=== PATIENT | male | born 1965 | race Caucasian/White ===

== ENCOUNTER 2020-04-11 11:34 | Emergency (ER) | payer BC ==
--- NOTE | 2020-04-11 12:52 | ER Document Report ---
ED Medical Screen (RME) - General Chief Complaint: Wrist Injury Stated Complaint: ARM INJURY Time Seen by Provider: 04/11/20 12:37 Mode of Arrival: Ambulatory Information source: Patient Notes: Patient is a 54-year-old male who was sent to the emergency room by his primary care provider after sustaining an injury to the dorsal aspect of his left wrist. Patient has a small laceration to the top of the left wrist the does not appear very deep however patient is unable to lift his left wrist in extension mode without pain but is unable to lift his middle finger at all. Patient is afraid he may have a piece of glass stuck in his arm or cut his tendons. He is currently on aware of his last tetanus shot but wants to check with his primary care provider before we give it in the emergency room. He will inform us of this later. Physical examination: Patient is a well-nourished well-developed 54-year-old male in no apparent distress but appears somewhat uncomfortable. Cardiac: Regular rate and rhythm no murmurs were heard on auscultation. Lungs: Bilateral breath sounds clear to auscultation. Examination of patient's area of concern is his left wrist there is approximately a 2 and half to 3 cm linear laceration going across the dorsum of the left wrist at the distal portion of the arm. Examination does not show to be deep at this time no foreign bodies were felt on palpation. Patient is able to extend his hand but with pain but is unable to lift the middle finger up to full extension. He has good cap refill in the nailbeds of the finger of the left hand. I have greeted and performed a rapid initial assessment of this patient. A comprehensive ED assessment and evaluation of the patient, analysis of test results and completion of the medical decision making process will be conducted by additional ED providers. Dictation of this chart was performed using voice recognition software; therefore, there may be some unintended grammatical errors. - Related Data Allergies/Adverse Reactions: No Known Allergies Allergy (Unverified 04/11/20 12:33) Past Medical History - Social History Chew tobacco use (# tins/day): No Frequency of alcohol use: None Drug Abuse: None Physical Exam - Vital signs Vitals: Temp Pulse Resp BP Pulse Ox 97.9 F 73 16 112/74 97 04/11/20 11:40 04/11/20 11:40 04/11/20 11:40 04/11/20 11:40 04/11/20 11:40 Course - Vital Signs Vital signs: Temp Pulse Resp BP Pulse Ox 97.9 F 73 16 112/74 97 04/11/20 11:40 04/11/20 11:40 04/11/20 11:40 04/11/20 11:40 04/11/20 11:40
--- NOTE | 2020-04-11 13:07 | RADIOLOGY REPORT (SQ) ---
EXAM DESCRIPTION: WRIST LEFT 3 VIEWS IMAGES COMPLETED DATE/TIME: 04/11/2020 12:58 pm REASON FOR STUDY: ? FB in forearm unable to raise wrist and middle f COMPARISON: None. NUMBER OF VIEWS: Three views. TECHNIQUE: AP, lateral, and oblique radiographic images acquired of the left wrist. LIMITATIONS: None. FINDINGS: MINERALIZATION: Normal. BONES: No acute fracture or dislocation. No worrisome bone lesions. Normal alignment. SOFT TISSUES: Small amount of subcutaneous air is demonstrated dorsally. No radiopaque foreign srikanth s. OTHER: Degenerative changes in the radiocarpal joint and carpal bones. IMPRESSION: Soft tissue changes over the dorsal aspect of the wrist. No radiopaque foreign bodies. No fracture. TECHNICAL DOCUMENTATION: JOB ID: [id number] [employer]- All Rights Reserved Reading location - IP/workstation name: [email or web address]
[2020-04-11] MEDS ORDERED: LIDOCAINE 1% INJ (10 MG/ML) 10 ML MDV INJ ONE (14:22)
--- NOTE | 2020-04-11 14:22 | ER Document Report ---
ED Hand/Wrist Injury - General Chief Complaint: Wrist Injury Stated Complaint: ARM INJURY Time Seen by Provider: 04/11/20 12:37 Primary Care Provider: DAFNE MCKNIGHT DO [ACTIVE STAFF] - Follow up as needed Mode of Arrival: Ambulatory Information source: Patient Notes: Patient is a 54-year-old male comes emergency room complaining of laceration to the dorsum of his left wrist. 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 Somehow the watch caught on a corner of the door and ripped off the glass portion of the watch and caused a laceration. Patient went to his primary care or walk-in clinic where they sent him here because he was unable to lift his wrist without pain and unable to fully extend the middle finger on the left hand. Patient feels like he might have a foreign body or piece of glass in the arm. Denies any other medical problems. Patient did not know if his tetanus shot was up-to-date. TRAVEL OUTSIDE OF THE [place] IN LAST 30 DAYS: No - HPI Injury to: Forearm, Wrist Onset: Just prior to arrival Where: Outdoors, Public place Timing: Constant Quality of pain: Sharp, Throbbing Severity: Moderate Pain Level: 3 Context: Laceration - Related Data Allergies/Adverse Reactions: No Known Allergies Allergy (Unverified 04/11/20 12:33) Past Medical History - General Information source: Patient - Social History Smoking Status: Former Smoker Chew tobacco use (# tins/day): No Frequency of alcohol use: None Drug Abuse: None Lives with: Family Family History: Reviewed & Not Pertinent Patient has homicidal ideation: No Review of Systems - Review of Systems Constitutional: No symptoms reported EENT: No symptoms reported Cardiovascular: No symptoms reported Respiratory: No symptoms reported Gastrointestinal: No symptoms reported Genitourinary: No symptoms reported Male Genitourinary: No symptoms reported Musculoskeletal: No symptoms reported Skin: Other - Laceration Hematologic/Lymphatic: No symptoms reported Neurological/Psychological: No symptoms reported -: Yes All other systems reviewed and negative Physical Exam - Vital signs Vitals: Temp Pulse Resp BP Pulse Ox 97.9 F 73 16 112/74 97 04/11/20 11:40 04/11/20 11:40 04/11/20 11:40 04/11/20 11:40 04/11/20 11:40 Interpretation: Normal - Notes Notes: PHYSICAL EXAMINATION: GENERAL: Well-appearing, well-nourished and in no acute distress. HEAD: Atraumatic, normocephalic. LUNGS: Breath sounds clear to auscultation bilaterally and equal. No wheezes rales or rhonchi. HEART: Regular rate and rhythm without murmurs Musculoskeletal: Examination patient's area concern is his left wrist distal portion of the forearm to the proximal portion of the wrist. He has approximately 2 and half centimeter linear laceration going across the wrist. This is approximately at the area where the watch would sit. Further evaluation shows patient unable to lift his wrist without discomfort and pain but he can do it. However when he gets the wrist perpendicular the middle finger will not raise above the knuckle. Patient states it also is very painful. Further evaluation of the wound itself does appear to be somewhat deep but it is very difficult to tell if it was a puncture wound only. Patient has good cap refill in nailbeds of that hand. But he has lost translator interpreter strength secondary to the discomfort. NEUROLOGICAL: Normal speech, normal gait. Normal sensory, motor exams PSYCH: Normal mood, normal affect. SKIN: See musculoskeletal above for full detail. Course - Re-evaluation Re-evalutation: 04/11/20 15:[address] Mcknight orthopedist front office java developer and hand specialist. I described to him the patient was unable to lift the middle finger in extension completely. But he had pain with extension of the wrist as well and he informed me that the patient should follow-up with him in the next 1 to 2 days. Patient is from out of town and has an orthopedist at home. He wants to follow-up there. I have informed patient that he needs to follow-up as soon as possible because if he has damage to tendon or has a partial tear he is got a certain amount of time to get it fixed of less than 10 days. I am also placing him back in his splint as per Dr. Mcknight patient understands the necessity to have follow-up soon. 04/11/20 15:15 Patient was also placed in a prefab cock-up splint/wrist splint. Patient stated it felt better once it was in place. This was reapplied after the sutures were done. 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 - Vital Signs Vital signs: Temp Pulse Resp BP Pulse Ox 98.0 F 78 18 120/70 98 04/11/20 15:00 04/11/20 15:00 04/11/20 15:00 04/11/20 15:00 04/11/20 15:00 Procedures - Laceration/Wound Repair Left Dorsal Arm Time completed: 15:12 Wound length (cm): 2.5 Wound's Depth, Shape: Into muscle, Linear Laceration pre-procedure: Sterile PPE donned, Chloraprep applied, Sterile drapes applied Anesthetic type: 1% Lidocaine Volume Anesthetic (mLs): 6 Wound explored: Clean Irrigated w/ Saline (mLs): 1,000 - Explored no foreign body Wound Debrided: Minimal Wound Repaired With: Sutures Suture Size/Type: 4:0, Prolene Number of Sutures: 3 Post-procedure wound care: Sterile dressing applied, Splint applied Post-procedure NV exam normal: Yes Complications: No Discharge - Discharge Clinical Impression: Extensor tendon disruption Arm laceration Qualifiers: Encounter type: initial encounter Laterality: left Qualified Code(s): S41.112A - Laceration without foreign body of left upper arm, initial encounter Condition: Stable Disposition: HOME, SELF-CARE Instructions: Antibiotic Ointment Protection ([facility]), Laceration Care ([facility]), Prophylactic Antibiotic ([facility]), Soap Cleansing ([facility]), Tetanus Immunization Given ([facility]) Additional Instructions: Use the splint until you follow-up with your orthopedist. You can take it off to take a shower. Also apply antibiotic ointment to the wound area 3 times a day and change her dressing out 3 times a day. This only needs to be a Band-Aid type of a dressing. As we discussed you need to follow-up with orthopedist within the next 2 to 3 days given that if you have disruption of the tendon it needs to be fixed relatively soon. I have given you the name of the orthopedist and hand specialist here at [facility] that I talked to today it is and you are welcome to contact his office. We are also placing you on antibiotics for prophylaxis and infection. If you have any concerns or problems return to ER for reevaluation. Prescriptions: Doxycycline Monohydrate 100 mg PO BID #20 tablet Doxycycline Monohydrate 100 mg PO BID #20 tablet Referrals: DAFNE MCKNIGHT, [ACTIVE STAFF] - Follow up as needed
[2020-04-11] MEDS ORDERED: LIDOCAINE 1% INJ-PF (10 MG/ML) 30 ML SDV INJ ONE (14:23)
[2020-04-11] MEDS ORDERED: DIPH/PERTUSS(ACELL)/TETANUS VAC/PF 0.5 ML SYR (>=10YO) IM ONE (15:17)
[2020-04-11 15:41] VITALS: BP 120/70
== END 2020-04-11 15:40 | disposition home or self-care (01) ==
LOC: ER 11:34
DX: S61.512A Laceration without foreign body of left wrist, initial encounter (principal); M67.80 Other specified disorders of synovium and tendon, unspecified site; W25.XXXA Contact with sharp glass, initial encounter; Y93.89 Activity, other specified; Z23 Encounter for immunization; Z87.891 Personal history of nicotine dependence
CPT/HCPCS: 99283; 90471; 73110; 90715; 12001; J3490